=== PATIENT | male | born 1970 | race Caucasian/White ===

== ENCOUNTER 2022-09-03 16:51 | Emergency (ER) | payer OTHER, SELFPAY ==
--- NOTE | ~2022-09-03 | XR_ITS ---
EXAMINATION: XR foot RT min 3V DATE: 09/03/2022 18:39 INDICATION: Right foot pain TECHNIQUE: Dorsoplantar, lateral, and 2 oblique views of the right foot were obtained. COMPARISON: None. FINDINGS: There is an acute, traumatic, comminuted fracture of the first distal phalanx which extends to the interphalangeal joint. Soft tissue swelling surrounds the fracture. No additional fracture is identified. The remaining osseous structures are unremarkable. IMPRESSION: 1. Comminuted intra-articular fracture of the first distal phalanx which may be an open fracture. Reviewed, dictated and finalized at location [facility]
[2022-09-03 17:14] VITALS: BP 150/80; PULSE 68; RESP 18; TEMP 37.3; O2SAT 97
--- NOTE | 2022-09-03 17:33 | ED.GENADULT ---
HPI - General Adult General Chief complaint: Extremity Injury, Lower <SHORTY Mayorga - Last Filed: 09/03/22 17:54> Stated complaint: toe injury/rt foot <SHORTY Mayorga - Last Filed: 09/03/22 17:54> Time Seen by Provider: 09/03/22 17:33 <SHORTY Mayorga - Last Filed: 09/03/22 17:54> Source: patient <SHORTY Mayorga - Last Filed: 09/03/22 17:54> Mode of arrival: ambulatory <SHORTY Mayorga - Last Filed: 09/03/22 17:54> Limitations: no limitations <SHORTY Mayorga - Last Filed: 09/03/22 17:54> History of Present Illness HPI narrative: 51-year-old male patient presents to the [facility] with complaints of right foot pain. Patient states he dropped a 20 lb metal piece on to his right foot about 3-4 days ago. Patient states he started bleeding to the right great toe and states that actually bled through the sock. Patient unaware of when his last tetanus shot was. Patient has been walking on the foot. <SHORTY Mayorga - Last Filed: 09/03/22 17:54> Related Data Home medications: Home Medications Medication Instructions Recorded Confirmed atorvastatin 10 mg tablet mg 09/03/22 finasteride 5 mg tablet mg 09/03/22 lisinopril 10 mg tablet mg 09/03/22 tamsulosin 0.4 mg capsule mg PO 09/03/22 <SHORTY Mayorga - Last Filed: 09/03/22 17:54> Allergies/adverse reactions: Allergies Allergy/AdvReac Type Severity Reaction Status Date / Time No Known Allergies Allergy Mild Verified 09/03/22 17:13 <SHORTY Mayorga - Last Filed: 09/03/22 17:54> Review of Systems Review of Systems: CONSTITUTIONAL: Denies fever, chills, or sweats. EYES: Denies visual changes, redness, or discharge. ENT: Denies rhinorrhea, congestion, sore throat, or otalgia. CARDIOVASCULAR: Denies chest pain, palpitations, or edema. RESPIRATORY: Denies cough or dyspnea. GASTROINTESTINAL: Denies abdominal pain, nausea, vomiting, or diarrhea. GENITOURINARY: Denies dysuria or hematuria. SKIN: Denies rash or itching. MUSCULOSKELETAL: Denies back pain, joint pain, or myalgia. Positive right foot and great toe pain times 3-4 day NEUROLOGIC: Denies headache, numbness, or weakness. PSYCHIATRIC: Denies anxiety or depression. <SHORTY Mayorga - Last Filed: 09/03/22 17:54> [facility] Past Medical History Medical History: Medical History (Updated 09/03/22 @ 19:07 by Sukhi Rueda, DIAGNOSTIC TECH) Closed left ankle fracture Hypercholesteremia Hypertension Migraines <SHORTY Mayorga - Last Filed: 09/03/22 17:54> Comments at the time of my signature I agree with nursing past medical history, surgical, social, and family history. There is no relevant family history pertinent to the presenting complaint. At the time of my signature I agree with nursing past medical history, surgical, social, and family history. There is no relevant family history pertinent to the presenting complaint. next is GENERAL: Well-appearing, well-nourished, and in no acute distress. <SHORTY Mayorga - Last Filed: 09/03/22 17:54> Exam Narrative: HEAD: Normocephalic, atraumatic. EYES: PERRLA and EOMI. ENT: Nares clear, no rhinorrhea or epistaxis. Mucous membranes moist. NECK: Supple. No lymphadenopathy CHEST: Clear to auscultation. No respiratory distress. HEART: Regular rate and rhythm. No murmur heard. Normal peripheral pulses. ABDOMEN: Soft, nontender, nondistended, normal active bowel sounds. EXTREMITIES: Patient able to bear weight and ambulate. patient has purple bruising noted over the base of the toes on the dorsal side of the foot that extends to the lateral side of the right foot. There is broken skin integrity noted to the top of the right great toe with bruising, and swelling and what appears to be some red streaking and possible cellulitis. The R foot is with obvious asymmetry or deformity when compared to the L foot. No bony step-off, tender to palpation over the
[2022-09-03] MEDS: TETANUS,DIPHTHERIA,AC PERTUSSIS ADULT (0.5 ML) BOOSTRIX IM (17:53)
--- NOTE | 2022-09-03 18:00 | PC.NURSE ---
Pt transferred to [facility] for Xray d/t no xray available today.
== END 2022-09-03 19:11 | disposition home or self-care (01) ==
PROVIDERS: Emergency Provider Nurse Practitioner Family; PCP Internal Medicine
DX: L03.031 Cellulitis of right toe (principal); S92.421B Displaced fracture of distal phalanx of right great toe, initial encounter for open fracture; W22.8XXA Striking against or struck by other objects, initial encounter; S97.111A Crushing injury of right great toe, initial encounter; Z23 Encounter for immunization; E78.00 Pure hypercholesterolemia, unspecified; I10 Essential (primary) hypertension
CPT/HCPCS: 73630; 90471; 90715; 99214; G0463